=== PATIENT | female | born 1990 | race Caucasian/White ===

== ENCOUNTER 2016-12-01 17:55 | Emergency (ER) | payer OTHER ==
[~2016-12-01] VITALS: Wt 64.0 kg
[~2016-12-01 17:55] MED LIST: ACYC400T84 PO; ARIP20TA7 PO; BACTDS PO; CEPH-443 PO; CLOT30CR24 TOP; CLOT45CR19 VAG; ELIM TOP; FLUC150T17 PO; LAM1CR24 TOP; ONDA4TAB35 PO; SERT50TA PO
[2016-12-01 18:07] VITALS: Wt 64.0 kg
--- NOTE | 2016-12-01 19:00 | ERD ---
ER Documentation Chief Complaint Date/Time DATE: 12/01/16 TIME: 18:52 Chief Complaint COUGH, FEVER, EAR PAIN X 2 WEEKS HPI 26-year-old female with a history of OCD and type II herpes simplex virus, presents to the emergency department with painful cough, subjective fever, sinus congestion, bilateral ear pain, body aches 2 weeks. Patient states the symptoms began to resolve then returned. Patient states that she has multiple sick contacts at home. Patient has attempted to treat her symptoms at home with Motrin with only temporary relief. Patient denies any nausea, vomiting, abdominal pain, dizziness, headache. ROS All systems reviewed and are negative except as per history of present illness. Medications Home Meds Active Scripts Clotrimazole* (Clotrimazole-7*) Vaginal Cream..g., 1 APPLIC VAG HS for 7 Days, EA Prov:AGUEDA RAMOS NP 04/17/16 Clotrimazole* (Clotrimazole* AF) 1% - 30 Gm Cream.gm., 1 APPLIC TOP BID for 7 Days, TUB Prov:AGUEDA RAMOS NP 04/17/16 Fluconazole* (Diflucan*) 150 Mg Tablet, 150 MG PO ONCE, #1 TAB Prov:AGUEDA RAMOS NP 04/17/16 Terbinafine Hcl* (Lamisil*) 1% - 30 Gm Cr, 1 APPLIC TOP DAILY, #1 TUB Prov:FAIZA CAMPBELL PA-C 12/09/15 Fluconazole* (Diflucan*) 150 Mg Tablet, 150 MG PO ONCE, #1 TAB Prov:FAIZA CAMPBELL PA-C 12/09/15 Cephalexin* (Keflex*) 500 Mg Capsule, 500 MG PO QID for 7 Days, CAP Prov:FAIZA CAMPBELL PA-C 12/09/15 Sulfamethoxazole-Trimethoprim* (Bactrim* DS) 800-160 Mg Tab, 1 TAB PO BID for 7 Days, TAB Prov:FAIZA CAMPBELL PA-C 12/09/15 Ondansetron Hcl* (Zofran* ODT) 4 mg -ODT Tab.disper, 4 MG PO Q6 Y for NAUSEA AND /OR VOMITING, #10 TAB Prov:MARK BROCK MD 04/04/15 Permethrin* (Elimite*) 5% Cr, 1 APPLIC TOP ONCE for 1 Day, TUB Prov:MARK BROCK MD 04/04/15 Reported Medications Aripiprazole* (Abilify*) 20 Mg Tablet, 20 MG PO DAILY, TAB 04/04/15 Sertraline Hcl* (Zoloft*) 50 Mg Tablet, 50 MG PO DAILY, TAB 04/04/15 Acyclovir* (Zovirax*) 400 Mg Tablet, 400 MG PO DAILY Y for OUT BRAKES 01/02/13 Allergies Allergies: Coded Allergies: No Known Allergies (Verified Allergy, Unknown, 12/09/15) PMhx/Soc History of Surgery: Yes () Anesthesia Reaction: No Hx Neurological Disorder: No Hx Respiratory Disorders: No Hx Cardiac Disorders: No Hx Psychiatric Problems: No Hx Miscellaneous Medical Probl: Yes (Ana Vaginitis) Hx Alcohol Use: No Hx Substance Use: No Hx Tobacco Use: Yes (2 sticks/day) Physical Exam Vitals Vital Signs Date Time Temp Pulse Resp B/P Pulse Ox O2 Delivery O2 Flow Rate FiO2 12/01/16 18:07 99.0 112 18 109/63 99 Physical Exam Const: Well-developed, well-nourished, no acute distress Head: Atraumatic Eyes: Normal Conjunctiva ENT: Posterior pharynx erythematous with right sided tonsillar swelling and exudate, uvula midline. Tympanic membranes without erythema or swelling bilaterally. Normal External Ears, Nose and Mouth. Neck: Full range of motion..~ No meningismus. Resp: Clear to auscultation bilaterally, no wheezes, rhonchi, rales Cardio: Regular rate and rhythm, no murmurs Abd: Soft, non tender, non distended. Normal bowel sounds Skin: No petechiae or rashes Back: No midline or flank tenderness Ext: No cyanosis, or edema Neur: Awake and alert Psych: Normal Mood and Affect Procedures/MDM 26-year-old female who presents with cough, sinus congestion, ear pain and pleuritic pain 2 weeks which began to resolve then returned and have gradually worsened. Patient has attempted to treat her symptoms at home with Motrin with only temporary relief. Patient notes multiple sick contacts at home. Vital signs reviewed. Patient afebrile, normotensive and non-hypoxic. The patient's clinical presentation is very consistent with acute bronchitis. The patient does not exhibit any clinical signs or symptoms concerning for serious bacterial infection or systemic illness. Based on history and clinical exam findings the patient does not appear to have evidence of pneumonia, urinary tract infection, bacteremia, sepsis, or meningitis. For these reasons I do not believe it is necessary to obtain laboratory testing or diagnostic imaging. I believe it would be appropriate for symptom control, and close outpatient primary care follow-up. Based on patient's history of present illness and physical examination the decision was made to discharge. The patient was re-evaluated after ED treatment and stabilizing measures, and symptoms have improved. There is no evidence of life threatening injuries or illnesses at this time. On re-examination, patient resting in no distress, stable vital signs, reports feeling better and safe for discharge with outpatient follow up with PMD in 1-2 days. Patient given return precautions. Departure Diagnosis: Primary Impression: Cough Additional Impressions: Bronchitis Ear pain Laterality: bilateral Qualified Code: H92.03 - Ear pain, bilateral Sore throat Pleuritic pain JOSELIN OJEDA PA-C Dec 01, 2016 19:00
[2016-12-01] MEDS ORDERED: GUAI-106 PO (19:01)
[2016-12-01] MEDS ORDERED: AZIT250T94 PO (19:01)
[2016-12-01] MEDS ORDERED: NAPR-260 PO (19:01)
== END 2016-12-01 19:14 | disposition home or self-care (01) ==
LOC: FTE 17:55
DX: R05 Cough (principal); J20.9 Acute bronchitis, unspecified; H92.03 Otalgia, bilateral; J02.9 Acute pharyngitis, unspecified; R07.89 Other chest pain; F17.210 Nicotine dependence, cigarettes, uncomplicated
CPT/HCPCS: 99283

== ENCOUNTER 2017-06-27 02:39 | Emergency (ER) | payer OTHER ==
[~2017-06-27] VITALS: Ht 162.6 cm; Wt 59.1 kg
[~2017-06-27 02:39] MED LIST changes: +AZIT250T94 PO; +GUAI-106 PO; +NAPR-260 PO
[2017-06-27 02:46] VITALS: Ht 162.6 cm; Wt 59.1 kg
[2017-06-27] MEDS ORDERED: ONDANSETRON 4 MG INJ IV STA (02:57)
[2017-06-27] MEDS ORDERED: SOD CHLORIDE 0.9% 1,000 ML IV STA (02:57)
[2017-06-27] MEDS ORDERED: HYDROmorphONE 1 MG/ML SYG IV STA ×2 (02:57→04:28)
[2017-06-27 03:20] LABS: BASOPHIL # 0.1 10^3/ul (0.0-0.1); BASOPHILS % 0.5 % (0.0-2.0); EOSINOPHILS # 0.1 10^3/ul (0.0-0.5); HEMATOCRIT 36.9 % (37.0-47.0); HEMOGLOBIN 12.5 g/dl (12.0-16.0); LYMPHOCYTES # 3.4 10^3/ul (0.8-2.9); LYMPHOCYTES % 34.5 % (15.0-51.0); MEAN CORPUSCULAR HGB CONC 33.9 g/dl (32.0-37.0); MEAN CORPUSCULAR VOLUME 82.7 fl (82.0-101.0); MONOCYTE # 0.7 10^3/ul (0.3-0.9); MONOCYTES % 7.1 % (0.0-11.0); NEUTROPHIL # 5.5 10^3/ul (1.6-7.5); NEUTROPHILS % 56.6 % (39.0-77.0); PLATELET COUNT 310 10^3/UL (140-415); RED BLOOD COUNT 4.46 10^6/ul (4.20-5.40); RED CELL DISTRIBUTION WIDTH 12.4 % (11.5-14.5); WHITE BLOOD COUNT 9.7 10^3/ul (4.8-10.8)
[2017-06-27 03:45] LABS: ALBUMIN 3.9 g/dl (3.3-4.9); ALBUMIN/GLOBULIN RATIO 1.14; BILIRUBIN,INDIRECT 0.2 mg/dl (0-1.1); BILIRUBIN,TOTAL 0.2 mg/dl (0.2-1.3); CALCIUM 9.5 mg/dl (8.4-10.2); CREATININE 0.86 mg/dl (0.44-1.00); POTASSIUM 3.8 mmol/L (3.5-5.1); TOTAL PROTEIN 7.3 g/dl (6.1-8.1)
--- NOTE | 2017-06-27 04:31 | RADRPT ---
PROCEDURE: CT ABDOMEN/PELVIS WITHOUT CONTRAST CLINICAL INDICATION: 26-year-old female with abdominal pain. TECHNIQUE: The study was performed utilizing a [employer] VCT 64-slice CT scanner. Direct axia l sections were obtained through the abdomen and pelvis without the use of intravenous contrast mate rial. Sagittal and coronal reformations were obtained. One or more of the following dose reduction t echniques were utilized: automated exposure control, adjustment of the mA and/or kV according to pat ient's size and/or the use of iterative reconstruction technique. DICOM images are available. The im ages were reviewed on a PACS workstation. CTD/vol = 7.2 mGy; Total Exam DLP = 375.4 mGy-cm. COMPARISON: None. FINDINGS: The lung bases are unremarkable. There is no evidence for significant pleural effusion. The liver has a normal size and contour without focal areas of abnormal density. No intrahepatic nor extrahepa tic biliary ductal dilatation is seen. The gallbladder demonstrates no wall thickening nor perichole cystic fluid. No biliary stones are evident. The pancreas is without areas of abnormal attenuation. The spleen is identified and has a normal size without abnormal density. The adrenal glands are unr emarkable. The kidneys are without abnormal density. No hydroureteronephrosis nor nephroureterolithi asis is evident. The urinary bladder contains urine. The colon is noted to be within the left side o f the abdomen suggestive of a malrotation. There is titm-pk-nyroshej retained stool throughout the c olon without gross bowel obstruction. The appendix is not visualized however there is no periappendi ceal inflammatory changes. The uterus is retroflexed. Surgical clips are seen adjacent to the uterine fundus from prior tubal ligation. There is no significant free fluid. The aortoiliac vessels are without aneurysmal dilatation. The osseous structures are intact. IMPRESSION: 1. Qvth-tz-kxarpfrm retained stool throughout the colon without gross bowel obstruction. Note that the colon is in the left side of the abdomen suggestive of malrotation. 2. Prior tubal ligation. .Brian Martinez MD, MD Date Time Electronically viewed and signed by .Brian Martinez MD, on 06/27/2017 04:30 .Manish
--- NOTE | 2017-06-27 05:33 | ERD ---
ER Documentation Chief Complaint Chief Complaint HPI 26-year-old female here with complaints of abdominal pain. She status post tubal ligation. No fevers no chills. No nausea no vomiting. No other complaints. Pain is mild to moderate intensity no exacerbating or alleviating factors ROS All systems reviewed and are negative except as per history of present illness. Medications Home Meds Active Scripts Guaifenesin/Pseudoephedrne HCl (Mucinex D ER 1,200-120 mg Tab) 1 Each Tab.er.12h , 2 EACH PO QAM for 7 Days, TAB Prov:JOSELIN OJEDA PA-C 12/01/16 Azithromycin* (Zithromax*) 250 Mg Tablet, 250 MG PO .ZPACK DIRECTED, #6 TAB TAKE 500 MG (2 TABS) THE FIRST DAY THEN 250 MG (1 TAB) DAYS 2-5 Prov:JOSELIN OJEDA PA-C 12/01/16 Naproxen* (Naprosyn*) 500 Mg Tablet, 500 MG PO BID Y for PAIN AND/OR INFLAMMATION, #30 TAB Prov:JOSELIN OJEDA PA-C 12/01/16 Clotrimazole* (Clotrimazole-7*) Vaginal Cream..g., 1 APPLIC VAG HS for 7 Days, EA Prov:AGUEDA RAMOS NP 04/17/16 Clotrimazole* (Clotrimazole* AF) 1% - 30 Gm Cream.gm., 1 APPLIC TOP BID for 7 Days, TUB Prov:AGUEDA RAMOS NP 04/17/16 Fluconazole* (Diflucan*) 150 Mg Tablet, 150 MG PO ONCE, #1 TAB Prov:AGUEDA RAMOS NP 04/17/16 Terbinafine Hcl* (Lamisil*) 1% - 30 Gm Cr, 1 APPLIC TOP DAILY, #1 TUB Prov:FAIZA CAMPBELL PA-C 12/09/15 Fluconazole* (Diflucan*) 150 Mg Tablet, 150 MG PO ONCE, #1 TAB Prov:FAIZA CAMPBELL PA-C 12/09/15 Cephalexin* (Keflex*) 500 Mg Capsule, 500 MG PO QID for 7 Days, CAP Prov:FAIZA CAMPBELL PA-C 12/09/15 Sulfamethoxazole-Trimethoprim* (Bactrim* DS) 800-160 Mg Tab, 1 TAB PO BID for 7 Days, TAB Prov:FAIZA CAMPBELL PA-C 12/09/15 Ondansetron Hcl* (Zofran* ODT) 4 mg -ODT Tab.disper, 4 MG PO Q6 Y for NAUSEA AND /OR VOMITING, #10 TAB Prov:MARK BROCK MD 04/04/15 Permethrin* (Elimite*) 5% Cr, 1 APPLIC TOP ONCE for 1 Day, TUB Prov:MARK BROCK MD 04/04/15 Reported Medications Aripiprazole* (Abilify*) 20 Mg Tablet, 20 MG PO DAILY, TAB 04/04/15 Sertraline Hcl* (Zoloft*) 50 Mg Tablet, 50 MG PO DAILY, TAB 04/04/15 Acyclovir* (Zovirax*) 400 Mg Tablet, 400 MG PO DAILY Y for OUT BRAKES 01/02/13 Allergies Allergies: Coded Allergies: No Known Allergies (Verified Allergy, Unknown, 12/09/15) PMhx/Soc History of Surgery: Yes ( 2014) Anesthesia Reaction: No Hx Neurological Disorder: No Hx Respiratory Disorders: No Hx Cardiac Disorders: No Hx Psychiatric Problems: No Hx Miscellaneous Medical Probl: Yes (Ana Vaginitis, HSV) Hx Alcohol Use: No Hx Substance Use: No Hx Tobacco Use: Yes Smoking Status: Current some day smoker Physical Exam Vitals Vital Signs Date Time Temp Pulse Resp B/P Pulse Ox O2 Delivery O2 Flow Rate FiO2 06/27/17 02:46 98.4 78 18 98/66 98 Room Air 06/27/17 02:46 98.4 78 18 98/66 98 Physical Exam Const: [] Head: Atraumatic Eyes: Normal Conjunctiva ENT: Normal External Ears, Nose and Mouth. Neck: Full range of motion..~ No meningismus. Resp: Clear to auscultation bilaterally Cardio: Regular rate and rhythm, no murmurs Abd: Soft, non tender, non distended. Normal bowel sounds Skin: No petechiae or rashes Back: No midline or flank tenderness Ext: No cyanosis, or edema Neur: Awake and alert Psych: Normal Mood and Affect Result Diagram: 06/27/17 0255 06/27/17 0255 Results 24 hrs Laboratory Tests Test 06/27/17 02:55 White Blood Count 9.710^3/ul Red Blood Count 4.4610^6/ul Hemoglobin 12.5g/dl Hematocrit 36.9% Mean Corpuscular Volume 82.7fl Mean Corpuscular Hemoglobin 28.0pg Mean Corpuscular Hemoglobin Concent 33.9g/dl Red Cell Distribution Width 12.4% Platelet Count 84916^3/UL Mean Platelet Volume 11.0fl Neutrophils % 56.6% Lymphocytes % 34.5% Monocytes % 7.1% Eosinophils % 1.0% Basophils % 0.5% Nucleated Red Blood Cells % 0.0/100WBC Neutrophils # 5.510^3/ul Lymphocytes # 3.410^3/ul Monocytes # 0.710^3/ul Eosinophils # 0.110^3/ul Basophils # 0.110^3/ul Nucleated Red Blood Cells # 0.010^3/ul Sodium Level 145mmol/L Potassium Level 3.8mmol/L Chloride Level 105mmol/L Carbon Dioxide Level 32mmol/L Anion Gap 12 Blood Urea Nitrogen 13mg/dl Creatinine 0.86mg/dl Glucose Level 107mg/dl Calcium Level 9.5mg/dl Total Bilirubin 0.2mg/dl Direct Bilirubin 0.00mg/dl Indirect Bilirubin 0.2mg/dl Aspartate Amino Transf (AST/SGOT) 14IU/L Alanine Aminotransferase (ALT/SGPT) 25IU/L Alkaline Phosphatase 88IU/L Total Protein 7.3g/dl Albumin 3.9g/dl Globulin 3.40g/dl Albumin/Globulin Ratio 1.14 Lipase 205U/L Serum HCG, Qualitative NEGATIVE Current Medications Medications (Trade) Dose Ordered Sig/Ashwin Route PRN Reason Start Time Stop Time Status Last Admin Dose Admin Sodium Chloride (NS) 1,000 ml @ 1,000 mls/hr Q1H STAT IV 06/27/17 02:57 06/27/17 03:56 DC 06/27/17 03:15 Hydromorphone HCl (Dilaudid) 1 mg ONCE STAT IV 06/27/17 02:57 06/27/17 02:58 DC 06/27/17 03:15 Ondansetron HCl (Zofran Inj) 4 mg ONCE STAT IV 06/27/17 02:57 06/27/17 02:58 DC 06/27/17 03:15 Hydromorphone HCl (Dilaudid) 1 mg ONCE STAT IV 06/27/17 04:28 06/27/17 04:29 DC 06/27/17 04:55 Procedures/MDM Medical decision: 26 year female abdominal pain of uncertain etiology but no evidence of surgical abdomen. Well-appearing. Pain resolved. Patient will be discharged home. Departure Diagnosis: Primary Impression: Abdominal pain Abdominal location: generalized Qualified Code: R10.84 - Generalized abdominal pain Condition: Stable GILBERTO LUNDBERG Jun 27, 2017 05:33
[2017-06-27] MEDS ORDERED: DOCU-144 PO (05:35)
[2017-06-27] MEDS ORDERED: ONDA4TAB14 PO (05:35)
[2017-06-27 06:09] VITALS: BP 92/74; PULSE 63; RESP 18; TEMP 98.4
== END 2017-06-27 06:11 | disposition home or self-care (01) ==
LOC: E/R 02:39
DX: R10.84 Generalized abdominal pain (principal); F17.210 Nicotine dependence, cigarettes, uncomplicated
CPT/HCPCS: 36415; 74176; 80053; 83690; 84703; 85025; 96374; 96375; 96376; J1170; J2405; J7030; Z7502

== ENCOUNTER 2017-09-02 23:56 | Emergency (ER) | END 2017-09-03 05:15 | disposition home or self-care (01) ==

== ENCOUNTER 2018-01-28 14:43 | Emergency (ER) | END 2018-01-28 20:38 | disposition home or self-care (01) ==

== ENCOUNTER 2018-02-03 18:03 | Emergency (ER) | END 2018-02-04 01:04 | disposition home or self-care (01) ==

== ENCOUNTER 2018-04-28 00:30 | Emergency (ER) | END 2018-04-28 03:00 | disposition home or self-care (01) ==